=== PATIENT | male | born 1955 | race Caucasian/White ===

== ENCOUNTER 2020-08-15 10:17 | Emergency (ER) | payer BC ==
--- OUTSIDE RECORDS SUMMARY | 2020-08-15 10:21 | XMS REPORT | Continuity of Care Document ---
:1955 Author Organization [facility] t Address [address] [place] [address] Care Team Providers Name Role Phone Godfrey White MD Attending Clinician Unavailable Zelda Ramirez MD Attending Clinician Manuel Blair Attending Clinician GODFREY WHITE Attending Clinician Unavailable Kayden Alfonso Attending Clinician Payers Payer Name Policy Type Policy Effective Date Expiration Date Sour ce Number BLUE CROSS/BLUE 2018 [facility] OS 001 00:00:00 - Medical POS/PPO/EPOxxxxxx Kyle [id number] 2018 -[id number] [address], [place] [address]GP Problems Condition Condition Condition Status Onset Resolution Last Treating Co mments Source Name Details Category Date Date Treatment Clinician Date BPH with BPH with Disease Active [facility] obstructio 2-25 Lois kes - n/lower n/lower 00:00: Medical urinary urinary 00 Center tract tract symptoms symptoms TREMOR/PAR Diagnosis Active 2017-062018-05-31 Memoria KINSONISM 07-16 08:45:00 l 00:00: Jaron TREMOR/PAR 00 KINSONISM Active 05/16/2018 [facility] Tremor Problem Resolve 2020-02-24 Agapito jacques (finding) d 21:15:53 l Tremor Jaron (finding) Resolved Problem 02/24/2020 Gardenia Velasco,[facility] Hyperlipid Problem Active 2020-02-24 M emoria emia 21:15:53 l (disorder) Quincy cody Hyperlipid emia (disorder) Active Problem 02/24/2020 [facility] Ophthalmic Problem Active 2020-02-24 M emoria migraine 21:15:53 l (disorder) Quincy cody Ophthalmic migraine (disorder) Active Problem 02/24/2020 [facility] Parkinsoni Problem Active 2020-02-24 M emoria sm 21:15:53 l (disorder) Quincy cody Parkinsoni sm (disorder) Active Problem 02/24/2020 [facility] Simple Problem Active 2020-02-24 Memor ia obesity 21:15:53 l (disorder) Simple Herm brielle obesity (disorder) Active Problem 02/24/2020 [facility] History of Past Illness Condition Condition Condition Status Onset Resolution Last Treating Co mments Source Name Details Category Date Date Treatment Clinician Date Parkinson' Problem 2017-062018-12-19 2018-12-19 Memoria s disease 2-19 11:09:44 11:09:44 l 04:34: Jaron Parkinson' 58 s disease 06/07/2018 12/19/2018 [facility] Allergies, Adverse Reactions, Alerts Allergy Allergy Status Severity Reaction(s) Onset Inactive Treating Comm ents Source Name Type Date Date Clinician Penicill Drug Active [facility] - [facility] Center penicill penicill Active Memori a ins ins l Jaron Social History Social Habit Start Date Stop Date Quantity Comments Source Sex Assigned At [facility] stewart [facility] Exposure to Not sure [facility] Ronquillo - SARS-CoV-2 [facility] (event) Tobacco use and 2020-08-14 2020-08-14 Never used [facility] Lois kes - exposure 00:00:00 00:00:00 [facility] Alcohol intake 2020-08-14 2020-08-14 Ex-drinker [facility] Abreuk es - 00:00:00 00:00:00 (finding) [facility] Tobacco Comment 2020-07-29 2020-07-29 quit 40 yrs ago REGGIE Tang - 00:00:00 00:00:00 [facility] Social History 2018-04-04 2018-04-04 [facility] mignon 22:17:06 22:17:06 Smoking Status Start Date Stop Date Source Former smoker 2020-08-14 00:00:00 2020-08-14 00:00:[address] [facility] Medications Ordered Filled Start Stop Current Ordering Indication Dosage Frequency Signature Comments Components Source Medication Medication Date Date Medication? Clinician (SIG) Name Name tamsulosin Yes .4mg QD Take 0.[address] (FLOMAX) 2-25 mg by [facility] - 0.4 mg Cap 19:12: mouth Medica l 24 hr 07 daily. Kyle capsule niacin 500 Yes 500mg QD Take [address] MG CR 2-25 mg by [facility] - capsule 19:12: mouth Medical 07 nightly. Kyle multivitami Yes 1{tbl} QD Take [address] n 2-25 tablet by [facility]ukes - (multivitam 19:12: mouth Medic al in) per 07 daily. Kyle tablet simvastatin Yes 20mg QD Take [address] (ZOCOR) 20 2-25 by mouth Lukes - MG tablet 19:12: nightly. Medi cabrera 07 Kyle pramipexole Yes 1.5mg QD Take 1.[address] (MIRAPEX) 2-25 mg by [facility] - 1.5 MG 19:12: mouth Medical tablet 07 daily . Kyle carbidopa-l Yes 1{tbl} Q.[id number] Take [address] evodopa 2-25 [id number] tablet by [facility] (SINEMET) 19:12: 3D mouth 3 Medic al 25-100 mg 07 (three) Kyle per tablet times daily. ubidecareno Yes Take by [facility] ne (CO Q-10 2-25 mouth. 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, Height, 89.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, kg, 06/22/19 13:22: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, Weight Carbidopa 2019-0 Yes 1 tab, PO, Me moria 25 MG / 5- TID, # 90 l Levodopa 14:04: tab, 3 [place] 100 MG Oral 00 Refill(s), Tablet Pharmacy: [Sinemet [facility] 25-100] [facility] 149 pramipexole Yes 1.5 mg = 1 Memoria 1.5 mg oral 10-18 tab, PO, l tablet, 14:04: Daily, # Quincy n extended 00 30 tab, 3 release Refill(s), Pharmacy: [facility] 149 Carbidopa Yes 1 tab, PO, Me moria 25 MG / 06-22 TID, # 90 l Levodopa 19:48: tab, 3 [place] 100 MG Oral 09 Refill(s), Tablet Pharmacy: [Sinemet [facility] 25-100] [place] [address] pramipexole Yes 1.5 mg = 1 Memoria 1.5 mg oral 06-22 tab, PO, l tablet, 19:48: Daily, # Quincy n extended 00 30 tab, 3 release Refill(s), Pharmacy: [facility] 149 24 HR Yes 0.75 mg = Memoria Pramipexole 02-21 1 tab, PO, l dihydrochlo 19:25: Bedtime, # Jaron ride 0.75 00 30 tab, 3 MG Extended Refill(s), Release Pharmacy: [facility] [Mirapex] [facility] 149 Carbidopa Yes 1 tab, PO, Me moria 25 MG / 02-21 TID, # 90 l Levodopa 19:24: tab, 3 [place] 100 MG Oral 56 Refill(s), Tablet Pharmacy: [Sinem[facility] 25-100] [facility] 149 Carbidopa Yes 1 tab, PO, Me moria 25 MG / -05 TID, # 90 l Levodopa 18:54: tab, 3 Jaron 100 MG Oral 33 Refill(s), Tablet Pharmacy: [Sinem[facility] 25-100] [place] [address] 24 HR Yes 0.75 mg = Memoria Pramipexole 11-22 1 tab, PO, l dihydrochlo 18:54: Bedtime, # Jaron ride 0.75 00 30 tab, 3 MG Extended Refill(s), Release Pharmacy: [facility] [Mirapex] [place] [address] Non-Formula Yes See [place] [facility] 11-22 Instructio l Medication 18:50: ns, CBD, Her hansen 00 Refill(s) 0 Carbidopa No 1 tab, PO, Me moria 25 MG / - TID, # 90 l Levodopa 19:32: tab, 3 Jaron 100 MG Oral 31 Refill(s), Tablet Pharmacy: [Sinem[facility] 25-100] [place] [address] Carbidopa 2017-06 No 1 tab, PO, Me moria 25 MG / 2-13 BID, # 60 l Levodopa 22:26: tab, 3 [place] 100 MG Oral 00 Refill(s), Tablet Pharmacy: [Sinem[facility] 25-100] [place] [address] tamsulosin 2017-06 Yes 0.4 mg = 1 M emoria 0.4 mg oral 0-16 cap, PO, l capsule 20:25: Daily, # Quincy n 00 30 cap, 0 Refill(s) simvastatin 2017-06 Yes 20 mg = 1 M emoria 20 mg oral 0-16 tab, PO, l tablet 20:25: Bedtime, # Cinda nn 00 30 tab, 1 Refill(s) Vital Signs Vital Name Observation Time Observation Value Comments Source Systolic blood 2020-08-14 17:43:00 154 mm[Hg] [facility] Diastolic blood 2020-08-14 17:43:00 75 mm[Hg] [facility] Heart rate 2020-08-14 17:43:00 61 /min [facility] Body temperature 2020-08-14 17:43:00 36.22 Anjana [facility] Respiratory rate 2020-08-14 17:43:00 16 /min [facility] Oxygen saturation in 2020-08-14 17:43:00 97 /min [facility] - Arterial blood by Medical Ce nter Pulse oximetry Body height 2020-08-14 12:51:[address] [facility] Body weight 2020-08-14 12:51:[address] [facility] BMI 2020-08-14 12:51:00 31.80 kg/m2 [facility] Systolic (mm Hg) 2019-06-22 19:16:00 Agapito rial [place] Diastolic (mm Hg) 2019-06-22 19:16:00 Mem orial [place] Heart Rate 2019-06-22 19:16:00 [facility] Jaron Respitory Rate 2019-06-22 19:16:00 Memori al Jaron Height 2019-06-22 19:16:[address] [facility] [place] Weight 2019-06-22 19:16:00 [facility] BMI Calculated 2019-06-22 19:16:00 Memori al [place] Systolic (mm Hg) 2019-02-21 18:53:00 Agapito rial Jaron Diastolic (mm Hg) 2019-02-21 18:53:00 Mem orial [place] Heart Rate 2019-02-21 18:53:00 [facility] [place] Respitory Rate 2019-02-21 18:53:00 Memori al [place] Height 2019-02-21 18:53:00 165.1 cm [facility] [place] Weight 2019-02-21 18:53:00 [facility] [place] BMI Calculated 2019-02-21 18:53:00 Memori al [place] Diastolic (mm Hg) 2018-11-22 18:30:00 Mem orial Jaron Weight 2018-11-22 18:30:00 [facility] [place] BMI Calculated 2018-11-22 18:30:00 Memori al Jaron Height 2018-11-22 18:30:00 162.56 cm [facility] [place] Heart Rate 2018-11-22 18:30:00 [facility] Jaron Respitory Rate 2018-11-22 18:30:00 Memori al [place] Systolic (mm Hg) 2018-11-22 18:30:00 Agapito rial [place] Height 2018-07-12 19:10:00 165.1 cm [facility] [place] BMI Calculated 2018-07-12 19:10:00 Memori al Jaron Weight 2018-07-12 19:10:00 [facility] Heart Rate 2018-07-12 19:10:00 [facility] Respitory Rate 2018-07-12 19:10:00 Memori al [place] Systolic (mm Hg) 2018-07-12 19:10:00 Agapito rial [place] Diastolic (mm Hg) 2018-07-12 19:10:00 Mem orial Jaron Height 2018-06-01 22:01:00 162.56 cm [facility] Weight 2018-06-01 22:01:00 [facility] [place] BMI Calculated 2018-06-01 22:01:00 Memori al J[place] Systolic (mm Hg) 2018-06-01 22:01:00 Agapito rial Jaron Diastolic (mm Hg) 2018-06-01 22:01:00 Mem orial [place] Heart Rate 2018-06-01 22:01:00 [facility] J[facility] Respitory Rate 2018-06-01 22:01:00 Memori al [place] BMI Calculated 2018-05-04 21:49:00 Memori al [place] Weight 2018-05-04 21:49:00 [facility] Jaron Height 2018-05-04 21:49:00 170.18 cm [facility] [place] Heart Rate 2018-05-04 21:49:00 [facility] J[facility] Respitory Rate 2018-05-04 21:49:00 Memori al [place] Systolic (mm Hg) 2018-05-04 21:49:00 Agapito rial [place] Diastolic (mm Hg) 2018-05-04 21:49:00 Mem orial Jaron Heart Rate 2018-04-04 21:34:00 [facility] Heart Rate 2018-04-04 20:21:00 [facility] Respitory Rate 2018-04-04 20:21:00 Memori al [place] Systolic (mm Hg) 2018-04-04 20:21:00 Agapito rial [place] Diastolic (mm Hg) 2018-04-04 20:21:00 Mem orial [place] Weight 2018-04-04 20:21:00 [facility] Jaron BMI Calculated 2018-04-04 20:21:00 Memori al [place] Height 2018-04-04 20:21:00 170.18 cm [facility] Procedures Procedure Date / Time Performed Performing Clinician Sour e URINE CULTURE 2020-08-11 10:29:00 Jose A White [facility] SARS-COV2/RT-PCR ([facility] & 2020-08-11 10:29:00 Jose A White [facility] REF LAB[facility]) [facility] URINALYSIS W/ 2020-08-11 10:29:00 Jose A White [facility] MICROSCOPIC [facility] BASIC METABOLIC PANEL 2020-08-11 10:29:00 Jose A White [facility] - (7) [facility] CBC W/PLT COUNT & AUTO 2020-08-11 10:29:00 Jose A [facility] DI[facility] Plan of Care Planned Activity Planned Date Details Comments Source Future Scheduled 2020-06-[address] [facility] - Test 00:00:00 (12+) [code = [facility] DEPRESSION SCREENING (12+)] Future Scheduled 2020-02-[address] [facility] - Test 00:00:00 (#1) [code = [facility] INFLUENZA VACCINE (#1)] Future Scheduled 2006-02-04 SHINGLES VACCINES ([address] [facility] - Test 00:00:00 of 2) [code = [facility] SHINGLES VACCINES (1 of 2)] Future Scheduled 1991-02-[address] [facility] - Test 00:00:00 (procedure) [code = [facility] 23281949] Future Scheduled 1975-02-04 DTAP/TDAP/TD VACCINES [facility] - Test 00:00:00 (1 - Tdap) [code = Medical C enter DTAP/TDAP/TD VACCINES (1 - Tdap)] Future Scheduled 1974-02-04 HEPATITIS C SCREENING [facility] - Test 00:00:00 [code = HEPATITIS C [facility] SCREENING] Future Scheduled [address] [facility] - Test 00:00:00 malignant neoplasm of Medica l Center colon (procedure) [code = 964333119] Encounters Start End Encounter Admission Attending Care Care Encounter Source Date/Time Date/Time Type Type Clinicians Facility Department ID 2020-02-22 2020-02-22 Outpatient JENNIFER Alfonso [id number] 09:00:00 09:00:00 Phi 09 Kayden 2020-01-25 2020-01-25 Outpatient Kaden, MHMISCHER MHMISCHER [id number] 14:30:00 23:59:59 Phi 10 Kayden 2019-10-19 2019-10-19 Outpatient Kaden, MHMISCHER MHMISCHER [id number] 09:00:00 23:59:59 Phi 08 Kayden 2019-06-22 2019-06-22 Outpatient Kaden, MHMISCHER MHMISCHER [id number] 13:15:00 23:59:59 Phi 07 Kayden 2019-02-21 2019-02-21 Outpatient Kaden, MHMISCHER MHMISCHER [id number] 13:45:00 23:59:59 Phi 06 Kayden 2018-11-22 2018-11-22 Outpatient Kaden, MHMISCHER MHMISCHER [id number] 13:15:00 23:59:59 Phi Kayden 2018-10-10 2018-10-11 Outpatient MHMISCHER MHMISCHER [id number] 09:56:00 23:59:59 2018-07-12 2018-07-12 Outpatient Kaden, MHMISCHER MHMISCHER [id number] 13:00:00 23:59:59 Phi 03 Kayden 2018-06-06 2018-06-07 Outpatient MHMISCHER MHMISCHER [id number] 10:18:00 23:59:59 2018-06-01 2018-06-01 Outpatient Kaden, MHMISCHER MHMISCHER [id number] 16:15:00 23:59:59 Phi 02 Kayden 2018-05-31 2018-05-31 [facility] [id number] 08:36:00 23:59:00 Phi 00 Kayden 2018-05-04 2018-05-04 Outpatient Kaden, MHMISCHER MHMISCHER [id number] 15:30:00 23:59:59 Phi Kayden 2018-04-07 2018-04-08 Outpatient MHMISCHER MHMISCHER [id number] 15:10:00 23:59:59 2018-04-04 2018-04-04 Outpatient Kaden, MHMISCHER MHMISCHER [id number] 15:30:00 23:59:59 Phi 00 Kayden Results Test Description Test Time Test Comments Results Result Comments Source Urine culture 2020-08-13 10:51:00 Test Item Value Reference Range Interpretation Comme nts Result (test code = 6463-4) [facility] [id number] 10:51:00 Test Item Value Reference Range Interpretation Comments CULTURE (BEAKER) (test code = 1095) No growth SARS-CoV2/RT-PCR (Asymptomatic ONLY)2020-08-12 00:04:00 Test Item Value Reference Range Interpretation Comments SARS-COV2/RT-PCR Negative Not Detected, (test code = Negative, See 87738-2) external report for linked test [facility]COV-2 [facility] (test code = 87634-1) SHANDRA (test code = Negative result for this SHANDRA) test determines that SARS-CoV-2 RNA was not present in the specimen above the Limit of Detection (LOD). However, Negative results do not preclude SARS-CoV-2 infection and should not be used as the sole basis for treatment or patient management decisions. Negative results must be combined with clinical observations, patient history, and epidemiological information. A false negative result may occur if a specimen is improperly collected, transported or handled. A false negative result should be considered if patient's recent exposures or clinical presentation indicate that COVID-19 (SARS-CoV-2) is likely and diagnostic tests for other causes of illness are negative. Re-testing should be considered in cases of suspected false negatives. The limit of detection for this assay is 100 copies/mL. This SARS CoV-2 test is a real-time RT-PCR test intended for the qualitative detection of nucleic acid from SARS-CoV-2 in a nasopharyngeal swab specimen collected from individuals suspected of COVID-19 by their healthcare provider. This test has not been Food and Drug Administration (FDA) cleared or approved. This is a modified version of an approved Emergency Use Authorization (EUA) and is in the process of review by the FDA. Once authorized by the FDA, the issued EUA will be effective until the declaration that circumstances exist justifying the authorization of the emergency use of in vitro diagnostic tests for detection and/or diagnosis of COVID-19 is terminated under Section 564(b)(2) of the Act or the EUA is revoked under Section 564(g) of the Act. Testing was performed using the [employer] SARS-CoV-2 assay. Fact Sheet for Healthcare Providers:https://www.vanessa reidNu-Tech Foods/fabiola/RT_SA BG-CrO-8_QCK_Ewpe_Syjuj_ 51-690594.pdf Fact Sheet for Healthcare Patients:https://www.marysol Jumpidobaldev.FirmPlay/fabiola/RT_SAR A-RaS-3_Dnelivf_Zwem_Edd et_EN_51-417562P9.pdf Performing Laboratory:[facility] [place] [address] [facility] ([facility])2020-08-12 00:04:00 Test Item Value Reference Range Interpretation Comments SARS-COV2/RT-PCR (test Negative Not Detected, Negative, code = 4270185) See external report for linked test SARS-COV-2 PERFORMING LAB [facility] (test code = 5074253) Negative result for this test determines that SARS-CoV-2 RNA was not present in the specimen above the Limit of Detection (LOD). However, Negative results do not preclude SARS-CoV-2 infection and should not be used as the sole basis for treatment or patient management decisions. Negative results mustbe combined with clinical observations, patient history, and epidemiological information. A false negative result may occur if a specimen is improperly collected, transported or handled. A false negative result should be considered if patient's recent exposures or clinical presentation indicate that COVID-19 (SARS-CoV-2) is likely and diagnostic tests for other causes of illness are negative. Re-testing should be considered in cases of suspected false negatives.The limit of detection for this assay is 100 copies/mL.This SARS CoV-2 test is a real-time RT-PCR test intended for the qualitative detection of nucleic acid from SARS-CoV-2 in a nasopharyngeal swab specimen collected from individuals susp ected of COVID-19 by their healthcare provider.This test has not been Food and Drug Administration (FDA) cleared or approved. This is a modified version of an approved Emergency Use Authorization (EUA) and is in the process of review by the FDA. Once authorized by the FDA, the issued EUA will be effective until the declaration that circumstances exist justifying the authorization of the emergency use of in vitro diagnostic tests for detection and/or diagnosis of COVID-19 is terminated under Section 564(b)(2) of the Act or the EUA is revoked under Section 564(g) of the Act.Testing was performed using the [employer] SARS-CoV-2 assay.Fact Sheet for Healthcare Providers:https://www.Vannevar Technology.pearson/fabiola/ VK_TMKI-BtQ-1_KJJ_Ymat_Sgqcv_70-250690.pdfFact Sheet for Healthcare Patients:https://www.[employer] shamika/fabiola/HQ_YGGM-AnB-0_Rygworm_Omel_Osqge_DD_22-996131J1.pdfPerforming Laboratory:[facility] [place] [address] Urinalysis w/[id number] 11:40:00 Test Item Value Reference Range Interpretation Comments Color, UA (test Yellow code = 5778-6) Clarity, UA (test Clear code = 5767-9) Specific [place], 1.019 1.001-1.035 UA (test code = 5811-5) pH, UA (test code 5.5 5.0-8.0 = 5803-2) Protein, UA (test Negative Negative code = 53864-3) Glucose, UA (test Negative Negative code = 365) Ketones, UA (test Negative Negative code = 2514-8) Bilirubin, UA Negative Negative (test code = 64967-3) Blood, UA (test Negative Negative code = 36446-7) Nitrite, UA (test Negative Negative code = 5802-4) Leukocytes, UA Negative Negative (test code = 5799-2) Urobilinogen, UA 0.2 mg/dL 0.2-1 (test code = 90142-5) RBC, UA (test <1 See_Comment [Automated me ssage] code = 23597-2) The system w [facility] generated this result transmit merritt reference range : /HPF. The refer ence range was not u sed to interpret th is result as normal/abnormal . WBC, UA (test 2 See_Comment [Automated me ssage] code = 5821-4) The system [facility] generated this result transmit merritt reference range : /HPF. The refer ence range was not u sed to interpret th is result as normal/abnormal . Mucus (test code Rare = 8247-9) Squam Epithel, UA <1 See_Comment [Automate d message] (test code = [place] h [address]-8) generated this result transmit merritt reference range : /HPF. The refer ence range was not u sed to interpret th is result as normal/abnormal . Specimen Source Urine, Voided (test code = 4945) SHANDRA (test code = Check Weigher ID - SHANDRA) [auto]Check Weigher ID - [facility] [id number] 11:40:00 Test Item Value Reference Range Interpretation Comments COLOR (BEAKER) (test code = Yellow 470) CLARITY (BEAKER) (test code = Clear 469) SPECIFIC GRAVITY UA (BEAKER) 1.019 1.001-1.035 (test code = 468) PH UA (BEAKER) (test code = 5.5 5.0-8.0 467) PROTEIN UA (BEAKER) (test code Negative Negative = 464) GLUCOSE UA (BEAKER) (test code Negative Negative = 365) KETONES UA (BEAKER) (test code Negative Negative = 371) BILIRUBIN UA (BEAKER) (test Negative Negative code = 462) BLOOD UA (BEAKER) (test code = Negative Negative 461) NITRITE UA (BEAKER) (test code Negative Negative = 465) LEUKOCYTE ESTERASE UA (BEAKER) Negative Negative (test code = 466) UROBILINOGEN UA (BEAKER) (test 0.2 mg/dL 0.2-1.0 code = 463) RBC UA (BEAKER) (test code = < /HPF 519) WBC UA (BEAKER) (test code = 2 /HPF 520) MUCUS (BEAKER) (test code = Rare 1574) SQUAMOUS EPITHELIAL (BEAKER) < /HPF (test code = 516) SOURCE(BEAKER) (test code = Urine, Voided 0825) Check Weigher ID - [auto]Check Weigher ID - techBasic Metabolic [id number] 11:30:00 Test Item Value Reference Range Interpretation Comments Sodium (test code = 141 meq/L 388-411 0366-2) Potassium (test code = 4.3 meq/L 3.5-5.1 Speci men slightly 2823-3) hemolyzed Chloride (test code = 107 meq/L 98-107 2075-0) CO2 (test code = 30 meq/L 22-29 H 2027-9) BUN (test code = 13 mg/dL 7-21 3094-0) Creatinine (test code 1.14 mg/dL 0.57-1.25 Specim en slightly = 2160-0) hemolyzed Glucose (test code = 91 mg/dL 70-105 2345-7) Calcium (test code = 8.6 mg/dL 8.4-10.2 00839-7) EGFR (test code = 65 mL/min/1.73 [place] [address]-9) NOT ACCURATE CREATININE CLEARANCE IN PREDICTING GLOMERULAR FILTRATION RATE . ESTIMATED GFR I S NOT APPLICABLE FOR DIALYSIS PATIENTS. SHANDRA (test code = SHANDRA) Check Weigher ID - ADMIN Lab Interpretation Abnormal (test code = 98852-8) [facility] [id number] 11:30:00 Test Item Value Reference Range Interpretation Comments SODIUM (BEAKER) 141 meq/L 136-145 (test code = 381) POTASSIUM (BEAKER) 4.3 meq/L 3.5-5.1 Specimen slightly (test code = 379) hemolyzed CHLORIDE (BEAKER) 107 meq/L 98-107 (test code = 382) CO2 (BEAKER) (test 30 meq/L 22-29 H code = 355) BLOOD UREA NITROGEN 13 mg/dL 7-21 (BEAKER) (test code = 354) CREATININE (BEAKER) 1.14 mg/dL 0.57-1.25 Specimen slightly (test code = 358) hemolyzed GLUCOSE RANDOM 91 mg/dL 70-105 (BEAKER) (test code = 652) CALCIUM (BEAKER) 8.6 mg/dL 8.4-10.2 (test code = 697) EGFR (BEAKER) (test 65 mL/min/1.73 ESTIMA MERRITT GFR IS code = 1092) sq m NOT ACCURATE CREATININE CLEARANCE IN PREDICTING GLOMERULAR FILTRATION RATE . ESTIMATED GFR I S NOT APPLICABLE FOR DIALYSIS PATIEN TS. Check Weigher ID - ADMINCBC with platelet count + automated [id number] 11:09:00 Test Item Value Reference Range Interpretation Comments WBC (test code = 6690-2) 6.4 See_Comment [A utomated message] The system [employer] generated this result transmitted ref erence range: 3.5 - 10 .5 K/L. The refe rence range was not u sed to interpret this result as normal/abnor mal. RBC (test code = 789-8) 5.25 See_Comment [Au tomated message] The system [employer] generated this result transmitted ref erence range: 4.63 - 6 .08 M/L. The refe rence range was not u sed to interpret this result as normal/abnor mal. MCHC (test code = 786-4) 31.7 See_Comment L [A utomated message] The system [employer] generated this result transmitted ref erence range: 32.3 - 3 6.5 GM/DL. The refe rence range was not u sed to interpret this result as normal/abnor mal. Hematocrit (test code = 45.1 % 40.1-51 4544-3) MCV (test code = 787-2) 85.9 fL 79-92.2 MCH (test code = 785-6) 27.2 pg 25.7-32.2 RDW (test code = 788-0) 13.5 % 11.6-14.4 Platelets (test code = 246 See_Comment [Aut omated message] 777-3) The system [employer] generated this result transmitted ref erence range: 150 - 45 0 K/CU MM. The referen ce range was not u sed to interpret this result as normal/abnor mal. MPV (test code = 10.3 fL 9.4-12.4 89546-4) nRBC (test code = 413) 0 See_Comment [Aut omated message] The system [employer] generated this result transmitted ref erence range: 0 - 0 /1 00 WBC. The refere nce range was not u sed to interpret this result as normal/abnor mal. % Neutros (test code = 62 % 429) % Lymphs (test code = 22 % 430) % Monos (test code = 9 % 431) % Eos (test code = 432) 5 % % Baso (test code = 437) 1 % # Neutros (test code = 4.02 See_Comment [Aut omated message] 670) The system [employer] generated this result transmitted ref erence range: 1.78 - 5 .38 K/L. The refe rence range was not u sed to interpret this result as normal/abnor mal. # Lymphs (test code = 1.44 See_Comment [Auto mated message] 414) The system [employer] generated this result transmitted ref erence range: 1.32 - 3 .57 K/L. The refe rence range was not u sed to interpret this result as normal/abnor mal. # Monos (test code = 0.55 See_Comment [Autom ated message] 415) The system [employer] generated this result transmitted ref erence range: 0.30 - 0 .82 K/L. The refe rence range was not u sed to interpret this result as normal/abnor mal. # Eos (test code = 416) 0.33 See_Comment [Au tomated message] The system [employer] generated this result transmitted ref erence range: 0.04 - 0 .54 K/L. The refe rence range was not u sed to interpret this result as normal/abnor mal. # Baso (test code = 417) 0.07 See_Comment [A utomated message] The system [employer] generated this result transmitted ref erence range: 0.01 - 0 .08 K/L. The refe rence range was not u sed to interpret this result as normal/abnor mal. Immature 1 % 0-1 Granulocytes-Relative (test code = 2801) Lab Interpretation (test Abnormal code = 92720-5) [facility] W/PLT COUNT & AUTO [id number] 11:09:00 Test Item Value Reference Range Interpretation Comments WHITE BLOOD CELL COUNT (BEAKER) 6.4 K/ L 3.5-10.5 (test code = 775) RED BLOOD CELL COUNT (BEAKER) 5.25 M/ L 4.63-6.08 (test code = 761) HEMOGLOBIN (BEAKER) (test code = 14.3 GM/DL 13.7-17.5 410) HEMATOCRIT (BEAKER) (test code = 45.1 % 40.1-51.0 411) MEAN CORPUSCULAR VOLUME (BEAKER) 85.9 fL 79.0-92.2 (test code = 753) MEAN CORPUSCULAR HEMOGLOBIN 27.2 pg 25.7-32.2 (BEAKER) (test code = 751) MEAN CORPUSCULAR HEMOGLOBIN CONC 31.7 GM/DL 32.3-36.5 L (BEAKER) (test code = 752) RED CELL DISTRIBUTION WIDTH 13.5 % 11.6-14.4 (BEAKER) (test code = 412) PLATELET COUNT (BEAKER) (test 246 K/CU MM 150-450 code = 756) MEAN PLATELET VOLUME (BEAKER) 10.3 fL 9.4-12.4 (test code = 754) NUCLEATED RED BLOOD CELLS 0 /100 WBC 0-0 (BEAKER) (test code = 413) NEUTROPHILS RELATIVE PERCENT 62 % (BEAKER) (test code = 429) LYMPHOCYTES RELATIVE PERCENT 22 % (BEAKER) (test code = 430) MONOCYTES RELATIVE PERCENT 9 % (BEAKER) (test code = 431) EOSINOPHILS RELATIVE PERCENT 5 % (BEAKER) (test code = 432) BASOPHILS RELATIVE PERCENT 1 % (BEAKER) (test code = 437) NEUTROPHILS ABSOLUTE COUNT 4.02 K/ L 1.78-5.38 (BEAKER) (test code = 670) LYMPHOCYTES ABSOLUTE COUNT 1.44 K/ L 1.32-3.57 (BEAKER) (test code = 414) MONOCYTES ABSOLUTE COUNT (BEAKER) 0.55 K/ L 0.30-0.82 (test code = 415) EOSINOPHILS ABSOLUTE COUNT 0.33 K/ L 0.04-0.54 (BEAKER) (test code = 416) BASOPHILS ABSOLUTE COUNT (BEAKER) 0.07 K/ L 0.01-0.08 (test code = 417) IMMATURE GRANULOCYTES-RELATIVE 1 % 0-1 PERCENT (BEAKER) (test code = 3146)
--- NOTE | 2020-08-15 12:54 | ER ---
Nurse's Notes [facility] Name: Myles Miles Age: 65 yrs Sex: Male : 1955 Arrival Date: 08/15/2020 Time: 10:25 Bed 18 Private MD: Andriy Frances B Diagnosis: Bladder Spasm Presentation: 08/15 10:34 Chief complaint: Patient states: Has urinary cath in since yesterday. Had urolift in [address]. States the catheter isn't flowing right today. Urine is leaking out from around cath site and burning. No known fever. Coronavirus screen: Client denies travel out of the [place] in the last 14 days. At this time, the client does not indicate any symptoms associated with coronavirus-19. Ebola Screen: Patient denies travel to an Ebola-affected area in the 21 days before illness onset. Initial Sepsis Screen: Does the patient meet any 2 criteria? No. Patient's initial sepsis screen is negative. Does the patient have a suspected source of infection? Yes: Dysuria/Frequency/Urgency/UTI. Risk Assessment: Do you want to hurt yourself or someone else? Patient reports no desire to harm self or others. Onset of symptoms was August 15, 2020. 10:34 Method Of Arrival: Ambulatory [facility] 10:34 Acuity: JUAREZ 4 ll1 Triage Assessment: 12:26 General: Appears in no apparent distress. comfortable, well groomed, Behavior is calm, dm14 cooperative, appropriate for age. 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 - Social history:: Smoking status: Patient denies any tobacco usage or history of. Screenin:35 Abuse screen: Denies threats or abuse. Denies injuries from another. Nutritional dm14 screening: No deficits noted. Tuberculosis screening: No symptoms or risk factors identified. Fall Risk None identified. Assessment: 10:35 General: Appears in no apparent distress. comfortable, well groomed, Behavior is calm, dm14 cooperative, appropriate for age. 10:35 Pain: Complains of pain in suprapubic area Pain currently is 2 out of 10 on a pain dm14 scale. Vital Signs: 10:34 BP 132 / 76; Pulse 78; Resp 17; Temp 98.4; Pulse Ox 100% ; Weight 89.36 kg; Height 5 ll1 ft. 6 in. (167.64 cm); Pain 0/10; 10:35 BP 124 / 66; Pulse 86; Resp 18; Pulse Ox 99% ; dm14 10:34 Body Mass Index 31.80 (89.36 kg, 167.64 cm) ll1 ED Course: 10:25 Patient arrived in ED. mr 10:26 Andriy Frances MD is Private Physician. mr 10:33 Arm band placed on Patient placed in an exam room, on a stretcher. ll1 10:35 Bladder scanned for 26mls. dm14 10:35 Patient has correct armband on for positive identification. Bed in low position. Call dm14 light in reach. Side rails up X 1. 10:36 Triage completed. ll1 10:36 Ab Cardoza MD is Attending Physician. kdr 10:51 called and left message with Dr. Jose A White patient's urologist office \T\ eb [phone]. the office staff will page the urologist carbonation equipment operator and someone should be calling us back. 11:30 Kati Bartlett RN is Primary Nurse. dm14 12:[address] Jose A White/ Stu from his answering service says he will reach out eb again to the carbonation equipment operator and someone should be calling us back. 12:[address] White with Dr. Cardoza for patient consultation. eb 12:53 Andriy Frances MD is Referral Physician. kdr 13:25 No provider procedures requiring assistance completed. Patient did not have IV access dm14 during this emergency room visit. Administered Medications: No medications were administered Outcome: 12:53 Discharge ordered by . kdr 13:25 Discharged to home ambulatory. dm14 13:25 Condition: stable 13:25 Discharge instructions given to patient, Instructed on discharge instructions, follow up and referral plans. medication usage, Demonstrated understanding of instructions, follow-up care, medications. 13:26 Patient left the ED. dm14 Signatures: Ab Cardoza MD MD [facility] Rosario Danielle Coronado Lynsay, RN RN ll1 Kati Bartlett RN RN dm14 Corrections: (The following items were deleted from the chart) 12:30 11:45 General: Appears in no apparent distress. comfortable, well groomed, Behavior is dm14 calm, cooperative, appropriate for age, dm14
--- NOTE | 2020-08-15 12:54 | EDPHYS ---
Physician Documentation [facility] Name: Myles Miles Age: 65 yrs Sex: Male : 1955 Arrival Date: 08/15/2020 Time: 10:25 Bed 18 Private MD: Andriy Frances B ED Physician Ab Cardoza HPI: 08/15 17:15 This 65 yrs old Male presents to ER via Ambulatory with complaints of Problem kdr With Urinary Catheter. 17:15 The patient presents with a Mullins catheter problem, is leaking urine. Onset: The kdr symptoms/episode began/occurred gradually, today. Modifying factors: The symptoms are alleviated by nothing, the symptoms are aggravated by movement. Associated signs and symptoms: The patient has no apparent associated signs or symptoms. Severity of symptoms: At their worst the symptoms were severe, in the emergency department the symptoms are unchanged. The patient has not experienced similar symptoms in the past. The patient has been recently seen by a physician: The patient had a urolift yesterday and this morning started to have some leakage around the catheter. He has a slight sense of fullness in his lower abdomen, NO s/s of infection. 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 - Social history:: Smoking status: Patient denies any tobacco usage or history of. ROS: 17:15 Constitutional: Negative for fever, chills, and weight loss, Eyes: Negative for injury, kdr pain, redness, and discharge, ENT: Negative for injury, pain, and discharge, Neck: Negative for injury, pain, and swelling, Cardiovascular: Negative for chest pain, palpitations, and edema, Respiratory: Negative for shortness of breath, cough, wheezing, and pleuritic chest pain, Back: Negative for injury and pain, MS/Extremity: Negative for injury and deformity, Skin: Negative for injury, rash, and discoloration, Neuro: Negative for headache, weakness, numbness, tingling, and seizure activity. Psych: Negative for depression, anxiety, suicide ideation, homicidal ideation, and hallucinations, Allergy/Immunology: Negative for hives, rash, and allergies, Endocrine: Negative for neck swelling, polydipsia, polyuria, polyphagia, and marked weight changes, Hematologic/Lymphatic: Negative for swollen nodes, abnormal bleeding, and unusual bruising. 17:15 Abdomen/GI: Positive for abdominal pain, Negative for nausea, vomiting, and diarrhea, constipation, abdominal distension, anorexia, dysphagia, hematemesis, black/tarry stool, rectal pain, rectal bleeding. 17:15 : Positive for urinary symptoms, The patient has had some rhonda drainage from around the cath today. Exam: 17:15 Constitutional: This is a well developed, well nourished patient who is awake, alert, kdr and in no acute distress. 17:15 : Male external genitalia: normal, no erythema, no injury, no swelling, no tenderness, penile discharge, serosanguinous, Bladder: is normal, tenderness, that is mild, to gravity drainage. Vital Signs: 10:34 BP 132 / 76; Pulse 78; Resp 17; Temp 98.4; Pulse Ox 100% ; Weight 89.36 kg; Height 5 ll1 ft. 6 in. (167.64 cm); Pain 0/10; 10:35 BP 124 / 66; Pulse 86; Resp 18; Pulse Ox 99% ; dm14 10:34 Body Mass Index 31.80 (89.36 kg, 167.64 cm) ll1 MDM: 12:53 Patient medically screened. kdr 12:58 Data reviewed: vital signs. ED course: D/W covering for Dr. White - asked to have kdr patient started on Ditropan 5 mg TID PRN pain. Administered Medications: No medications were administered Disposition: 08/15/20 12:53 Discharged to Home. Impression: Bladder Spasm. - Condition is Stable. - Prescriptions for Ditropan XL 5 mg Oral tablet extended release 24hr - take 1 tablet by ORAL route 3 times per day As needed; 12 tablet. - Blank Diagnosis Outline, Medication Reconciliation Form, Thank You Letter form. - Follow up: Andriy Frances MD; When: 2 - 3 days; Reason: If symptoms return, Further diagnostic work-up, Recheck today's complaints, Continuance of care, Re-evaluation by your physician. - Problem is new. - Symptoms have improved. Signatures: Ab Cardoza MD MD kdr Janina Linda RN RN ll1 Kati Bartlett RN RN dm14 Corrections: (The following items were deleted from the chart) 13:26 12:53 08/15/2020 12:53 Discharged to Home. Impression: Bladder Spasm. Condition is dm14 Stable. Forms are Medication Reconciliation Form, Thank You Letter, Antibiotic Education, Prescription Opioid Use. Follow up: Andriy Frances; When: 2 - 3 days; Reason: If symptoms return, Further diagnostic work-up, Recheck today's complaints, Continuance of care, Re-evaluation by your physician. Problem is new. Symptoms have improved. kdr
[2020-08-15 14:08] VITALS: TEMP 98.4
[2020-08-15 14:09] VITALS: BP 124/66; O2SAT 99
== END 2020-08-15 13:26 | disposition home or self-care (01) ==
LOC: ER 10:17
DX: T83.031A Leakage of indwelling urethral catheter, initial encounter (principal); N32.89 Other specified disorders of bladder; Z88.0 Allergy status to penicillin; Z98.890 Other specified postprocedural states
CPT/HCPCS: 99281